=== PATIENT | female | born 1990 | race Caucasian/White ===

== ENCOUNTER 2021-01-07 03:27 | Emergency (ER) | payer BC, SELFPAY ==
[2021-01-07 03:31] VITALS: BP 129/80; PULSE 56; RESP 20; TEMP 36.8; O2SAT 100
--- NOTE | 2021-01-07 04:03 | ED.ABDPAIN ---
HPI - Abdominal Pain General Chief Complaint: Abdominal Pain Stated Complaint: nausea and vomiting Time Seen by Provider: 01/07/21 03:42 History of Present Illness HPI narrative: 30 yo female w/ h/o GERD presents to the ED ofr epigastric pain and nausea. She has had burning pain radiating into the chest since about 10PM yesterday. She has had this pain before due to GERD. She has not taken anything for it today. Related Data Home Medications Medication Instructions Recorded Confirmed sertraline mg 01/07/21 Allergies Allergy/AdvReac Type Severity Reaction Status Date / Time No Known Allergies Allergy Verified 01/07/21 03:41 Review of Systems Review of Systems: All systems reviewed & are unremarkable except as noted in HPI and below Constitutional: Constitutional: Denies fever(s) Cardiovascular: Cardiovascular: Denies chest pain Respiratory: Respiratory: Denies dyspnea Gastrointestinal: Gastrointestinal: Reports as per HPI Genitourinary: Genitourinary: Reports no additional female genitourinary complaints Neurologic: Denies numbness and Denies weakness FOR[facility], [facility] Past Medical History Medical History (Updated 01/07/21 @ 05:52 by Michael Cesar MD) GERD (gastroesophageal reflux disease) Exam Const: General: healthy appearing, no acute distress and alert Orientation/consciousness: patient oriented x3 HENMT: Head: normal to inspection Neck: Neck: normal visual inspection Resp: Effort & Inspection: normal respiratory effort Auscultation: clear to auscultation bilaterally, no rales, no rhonchi and no wheezes Cardio: Jugular venous distension: no JVD Rate: regular rate Rhythm: regular rhythm Heart sounds: no murmurs GI: Inspection: non-distended GI Palp: Yes Soft to palpation and Yes Tenderness to palpation present (GI) (epigastium) Skin: General skin exam: normal color Neuro: General: patient oriented x3 and moves all extremities Speech: normal speech Extrem: General: normal to inspection Psych: Appearance: well kempt Affect: Anxious affect present Course Vital Signs Vital signs: Vital Signs Temperature 36.8 C 01/07/21 03:31 Pulse Rate 56 L 01/07/21 03:31 Respiratory Rate 20 01/07/21 03:31 Blood Pressure 129/80 01/07/21 03:31 Pulse Oximetry 100 01/07/21 03:31 Temperature 36.8 C 08/09/21 03:31 Pulse Rate 56 L 01/07/21 03:31 Respiratory Rate 20 01/07/21 03:31 Blood Pressure 129/80 01/07/21 03:31 Pulse Oximetry 100 01/07/21 03:31 MDM - Abdominal Pain MDM Narrative Medical decision making narrative: Presentation consistent with GERD. Pain resolved with symptomatic treatment. Given short duration, benign exam, and complete resolution with treatment I do not feel labs or imaging are warranted at this time. Differential Diagnosis Differential diagnosis: Likely pancreatitis and other (GERD, PUD, gastritis, biliary colic) Medical Records Attestation: I reviewed the patient's medical records. Discharge Plan Discharge Clinical Impression: GERD (gastroesophageal reflux disease) Patient Disposition: Home, Self-Care Condition: Stable Instructions: GERD (Gastroesophageal Reflux Disease) (ED) Prescriptions: New pantoprazole [Protonix] 40 mg tablet,delayed release (DR/EC) 40 mg PO HS Qty: 30 RF: 0 No Action sertraline 25 mg tablet RF: 0 Follow-up/Referrals: PHYSICIAN,OPERATION RESEARCH ANALYST [Primary Care Provider] - Stan Pardo MD [Physician] -
[2021-01-07] MEDS: ONDANSETRON HCL ODT 4 MG TABLET PO (04:15)
[2021-01-07] MEDS: PANTOPRAZOLE 40 MG TABLET PO (05:00)
== END 2021-01-07 06:15 | disposition home or self-care (01) ==
PROVIDERS: Emergency Provider Emergency Medicine
DX: K21.9 Gastro-esophageal reflux disease without esophagitis (principal)
CPT/HCPCS: 99283; A9270

== ENCOUNTER 2021-07-20 01:43 | Emergency (ER) | payer OTHER, MEDICAID, SELFPAY ==
[2021-07-20 01:50] VITALS: BP 152/103; PULSE 53; RESP 24; TEMP 36.4; O2SAT 100
--- NOTE | 2021-07-20 02:34 | ED.ABDPAIN ---
HPI - Abdominal Pain General Chief Complaint: Abdominal Pain Stated Complaint: Abd pain Time Seen by Provider: 07/20/21 02:22 History of Present Illness HPI narrative: Patient is a 30-year-old female who presents ER with epigastric pain. Began at 11 AM. It is burning in nature. Patient tried to take Maalox and caused her to vomit. No blood in her vomit. No blood in her stool. No radiation of her discomfort. Denies chest pain/shortness of breath. No fevers chills or sweats. Feels similar to previous diagnosis of GERD in the past. Related Data Home Medications Medication Instructions Recorded Confirmed sertraline mg 01/07/21 Allergies Allergy/AdvReac Type Severity Reaction Status Date / Time No Known Allergies Allergy Verified 07/20/21 02:36 Review of Systems Review of Systems: All systems reviewed & are unremarkable except as noted in HPI and below Constitutional: Constitutional: Denies chills, Denies fever(s) and Denies weakness ENT: Denies nasal congestion and Denies sore throat Cardiovascular: Cardiovascular: Denies chest pain, Denies rapid heart rate and Denies radiating jaw, neck or arm pain Respiratory: Respiratory: Denies cough and Denies dyspnea Gastrointestinal: Gastrointestinal: Reports abdominal pain, Reports heartburn, Denies diarrhea, Reports nausea and Reports vomiting PMFSH Past Medical History Medical History (Updated 07/20/21 @ 04:33 by Marcus Guzman MD) GERD (gastroesophageal reflux disease) Surgical History Surgical History (Updated 07/20/21 @ 02:36 by Marcus Guzman MD) No pertinent past surgical history Exam Narrative: GENERAL: Well-appearing, well-nourished, and in no acute distress. HEAD: Normocephalic, atraumatic. ENT: Mucous membranes moist. CHEST: Clear to auscultation. No respiratory distress. HEART: Regular rate and rhythm. Normal peripheral pulses. ABDOMEN: Soft, mild epigastric discomfort without rebound or guarding, nondistended, normal active bowel sounds. EXTREMITIES: Normal range of motion. No edema. NEURO: Alert and oriented x3. PSYCH: Normal mood and affect. Course Course Emergency Course: Symptoms improved with Zofran and GI cocktail. Labs unremarkable. Discharged home. Vital Signs Vital signs: Vital Signs Temperature 97.6 F 07/20/21 01:50 Pulse Rate 53 L 07/20/21 01:50 Respiratory Rate 24 H 07/20/21 01:50 Blood Pressure 152/103 H 07/20/21 01:50 Pulse Oximetry 100 07/20/21 01:50 Temperature 97.6 F 07/20/21 01:50 Pulse Rate 53 L 07/20/21 01:50 Respiratory Rate 24 H 07/20/21 01:50 Blood Pressure 152/103 H 07/20/21 01:50 Pulse Oximetry 100 07/20/21 01:50 MDM - Abdominal Pain Lab Data Result diagrams: 07/20/21 02:46 07/20/21 02:46 Labs: Lab Results 07/20/21 07/20/21 Range/Units 02:46 02:46 WBC 10.7 H (4.5-10.0) K/mm3 RBC 4.56 (4.2-5.4) M/mm3 Hgb 14.0 (12.0-15.0) g/dL Hct 42.8 (37.0-47.0) % MCV 93.9 (80-100) fl MCH 30.7 (26-34) pg MCHC 32.7 (32-36) g/dl RDW 13.1 (11.5-14.5) % Plt Count 358 (150-375) k/mm3 MPV 10.4 (7.4-10.4) fl Immature Gran % (Auto) 0.3 (0-0.5) % Neut % (Auto) 82.5 H (45.5-73.1) % Lymph % (Auto) 12.2 L (18.3-44.2) % [place] % (Auto) 3.9 (2.6-8.5) % Eos % (Auto) 0.4 (0-4.4) % Baso % (Auto) 0.7 (0.2-1.2) % Lymph # (Auto) 1.31 (0.9-3.2) K/mm3 [place] # (Auto) 0.4 (0.1-0.6) K/mm3 Eos # (Auto) 0.0 (0-0.3) K/mm3 Baso # (Auto) 0.1 (0.0-0.1) K/mm3 Abs Immat Gran (auto) 0.03 (0.00-0.031) K/mm3 Absolute Neuts (auto) 8.9 H (1.3-6.7) K/mm3 Absolute Nucleated RBC 0.0 (0.0-0.012) K/mm3 Nucleated RBC % 0.0 (0.0-0.2) % Sodium 140 (137-145) mmol/L Potassium 3.9 (3.4-5.0) mmol/L Chloride 105 (98-107) mmol/L Carbon Dioxide 26 (22-30) mmol/L Anion Gap 9 (8-16) mmol/L BUN 15 (7-17) mg/dL Creatinine 0.90 (0.7-1.0) mg/dL Estim Creat Clear Calc
[2021-07-20] MEDS: BELLADONNA ALK/PHENOB ELIX 10 ML, MAG HYDROX/ALUMINUM HYD/SIMETH 30 ML, LIDOCAINE HCL 2... PO (02:37)
[2021-07-20] MEDS: ONDANSETRON INJ 4 MG/2 ML VIAL IV PUSH (02:40)
[2021-07-20 02:53] LABS: Basophils Absolute Auto 0.1 K/mm3 (0.0-0.1); Basophils Percent Auto 0.7 % (0.2-1.2); Eosinophils Percent Auto 0.4 % (0-4.4); Hematocrit 42.8 % (37.0-47.0); Immature Granulocyte Absolute 0.03 K/mm3 (0.00-0.031); Immature Granulocyte Percent A 0.3 % (0-0.5); Lymphocytes Absolute Auto 1.31 K/mm3 (0.9-3.2); Lymphocytes Percent Auto 12.2 % (18.3-44.2); Mean Corpuscular HGB Conc 32.7 g/dl (32-36); Mean Corpuscular Hemoglobin 30.7 pg (26-34); Mean Corpuscular Volume 93.9 fl (80-100); Mean Platelet Volume 10.4 fl (7.4-10.4); Monocytes Absolute Auto 0.4 K/mm3 (0.1-0.6); Monocytes Percent Auto 3.9 % (2.6-8.5); Neutrophils Absolute Auto 8.9 K/mm3 (1.3-6.7); Neutrophils Percent Auto 82.5 % (45.5-73.1); Platelet Count Result 358 k/mm3 (150-375); Red Blood Count 4.56 M/mm3 (4.2-5.4); Red Cell Distribution Width 13.1 % (11.5-14.5); White Blood Count 10.7 K/mm3 (4.5-10.0)
[2021-07-20 03:10] LABS: Alanine Aminotransferase 17 U/L (4-35); Albumin Level 4.3 g/dL (3.5-5.1); Alkaline Phosphatase 69 U/L (38-126); Anion Gap 9 mmol/L (8-16); Aspartate Amino Transferase 22 U/L (14-36); Bilirubin,Total 0.4 mg/dL (0.2-1.3); Blood Urea Nitrogen 15 mg/dL (7-17); Calcium 9.5 mg/dL (8.4-10.2); Carbon Dioxide 26 mmol/L (22-30); Chloride 105 mmol/L (98-107); Estimated CRCL calculation 121 ml/min; Estimated Glomerular Filt Rate > 60; Glucose 152 mg/dL (65-110); Lipase 64 U/L (23-300); Potassium 3.9 mmol/L (3.4-5.0); Sodium 140 mmol/L (137-145)
[2021-07-20 04:59] VITALS: BP 123/70; PULSE 72; RESP 18; O2SAT 97
== END 2021-07-20 04:30 | disposition home or self-care (01) ==
PROVIDERS: Emergency Provider Emergency Medicine
DX: K21.9 Gastro-esophageal reflux disease without esophagitis (principal)
CPT/HCPCS: 36415; 80053; 83690; 85025; 96374; 99284; A9270; J2405

== ENCOUNTER 2022-06-22 05:17 | Emergency (ER) | payer OTHER, MEDICAID, SELFPAY ==
[2022-06-22 05:21] VITALS: BP 151/94; PULSE 52; RESP 18; TEMP 36.4; O2SAT 100
[2022-06-22 07:21] VITALS: BP 149/77; O2SAT 100
--- NOTE | 2022-06-22 07:24 | ED.ABDPAIN ---
HPI - Abdominal Pain General Chief Complaint: Abdominal Pain Stated Complaint: GERD attack Time Seen by Provider: 06/22/22 07:19 History of Present Illness HPI narrative: Patient is a 31-year-old female who presents ER with concerns for a acid reflux attack. Patient reports she has history of GERD. She ate tacos and soda last night. Around 2:30 in the morning she woke up and she was having burning in her throat and chest. She is then had reported repetitive vomiting. No diarrhea. She reports mild epigastric pain. No radiation. No fevers chills or sweats. No known sick contacts. She does not take reflux medication on a regular basis. Related Data Home Medications Medication Instructions Recorded Confirmed sertraline 25 mg tablet mg 01/07/21 Allergies Allergy/AdvReac Type Severity Reaction Status Date / Time No Known Allergies Allergy Verified 06/22/22 07:20 Review of Systems Review of Systems: All systems reviewed & are unremarkable except as noted in HPI and below Constitutional: Constitutional: Denies chills and Denies fever(s) Cardiovascular: Cardiovascular: Reports no additional cardiovascular complaints Respiratory: Respiratory: Reports no additional respiratory complaints Gastrointestinal: Gastrointestinal: Reports abdominal pain, Reports heartburn, Denies diarrhea and Reports vomiting PMFSH Past Medical History Medical History (Updated 06/22/22 @ 08:38 by Marcus Guzman MD) GERD (gastroesophageal reflux disease) Surgical History Surgical History (Updated 06/22/22 @ 07:26 by Marcus Guzman MD) History of heart surgery Had ventricular muscular tissue removed at 9 months of age. Social History Social History (Updated 06/22/22 @ 07:26 by Marcus Guzman MD) Smoking status: Never smoker Exam Narrative: GENERAL: Well-appearing, well-nourished, and in no acute distress. HEAD: Normocephalic, atraumatic. NECK: Supple. CHEST: Clear to auscultation. No respiratory distress. HEART: Regular rate and rhythm. . Normal peripheral pulses. ABDOMEN: Soft, mild epigastric discomfort without guarding or rebound, nondistended. EXTREMITIES: Normal range of motion. No edema. SKIN: Warm, dry, no rash. NEURO: Alert and oriented x3. PSYCH: Normal mood and affect. Course Course Emergency Course: Patient declined labs/IV/Zofran's/fluid. She did take the GI cocktail and feels better. She will be discharged with Zofran and antireflux medication. Vital Signs Vital signs: Vital Signs Temperature 97.6 F 06/22/22 05:21 Pulse Rate 52 L 06/22/22 05:21 Respiratory Rate 18 06/22/22 05:21 Blood Pressure 151/94 H 06/22/22 05:21 Pulse Oximetry 100 06/22/22 05:21 Oxygen Delivery Room Air 06/22/22 05:21 Temperature 97.6 F 06/22/22 05:21 Pulse Rate 52 L 06/22/22 05:21 Respiratory Rate 18 06/22/22 05:21 Blood Pressure 151/94 H 06/22/22 05:21 Pulse Oximetry 100 06/22/22 05:21 Oxygen Delivery Room Air 06/22/22 05:21 Discharge Plan Discharge Clinical Impression: Acid reflux, Nausea & vomiting Patient Disposition: Home, Self-Care Condition: Stable Instructions: GERD (Gastroesophageal Reflux Disease) (ED) Additional Instructions: Return the ER if you have worsening abdominal pain, you cannot keep down food or water, you lose consciousness, you have additional concerns. Prescriptions: New ondansetron 4 mg tablet,disintegrating 4 mg PO Q6H PRN (Reason: nausea and vomiting) Qty: 10 0RF pantoprazole 20 mg tablet,delayed release (DR/EC) 20 mg PO HS 28 Days Qty: 28 0RF No Action sertraline 25 mg tablet pantoprazole [Protonix] 40 mg tablet,delayed release (DR/EC) 40 mg PO HS Qty: 30 0RF pantoprazole 20 mg tablet,delayed release (DR/EC) 20 mg PO HS Qty: 14 0RF Follow-up/Referrals: John Garcia MD [Physician] - 1 Week PHYSICIAN,TRANSFER CAR OPERATOR DRIER [Primary Care Provider] -
[2022-06-22 07:32] VITALS: BP 132/79; O2SAT 100
[2022-06-22] MEDS: BELLADONNA ALK/PHENOB ELIX 10 ML, MAG HYDROX/ALUMINUM HYD/SIMETH 30 ML, LIDOCAINE HCL 2... PO (07:51)
== END 2022-06-22 08:53 | disposition home or self-care (01) ==
PROVIDERS: Emergency Provider Emergency Medicine
DX: K21.9 Gastro-esophageal reflux disease without esophagitis (principal); R11.2 Nausea with vomiting, unspecified
CPT/HCPCS: 99283; A9270